=== PATIENT | female | born 1995 | race Hispanic/Latino ===

== ENCOUNTER 2023-01-21 02:09 | Emergency (ER) | payer OTHER ==
[2023-01-21] MEDS ORDERED: ONDANSETRON 4 MG/2 ML VIAL ONE ×2 (02:39→06:03)
[2023-01-21] MEDS ORDERED: MORPHINE 4 MG/ML SYR ONE (02:39)
[2023-01-21] MEDS ORDERED: KETOROLAC 30 MG/ML INJ ONE (03:45)
[2023-01-21] MEDS ORDERED: MORPHINE 2 MG/ML SYR ONE ×2 (03:45→06:03)
[2023-01-21 03:49] LABS: Protime INR 1.13
[2023-01-21 03:50] LABS: Absolute Lymphocytes (CBC) 2.7 K/uL (0.7-4.9); Hematocrit 33.8 % (36.0-45.0); Lymphocytes % 15.9 % (15.3-44.8); MCV 73.4 fL (80-100); MPV 9.2 fL (7.6-11.3)
[2023-01-21 04:03] LABS: ALT/SGPT 21 U/L (13-56); AST/SGOT 11 U/L (15-37); Albumin 3.6 g/dL (3.4-5.0); Alkaline Phosphatase 95 U/L (45-117); BUN Blood Urea Nitrogen 14 mg/dL (7-18); Bicarbonate 25 mEq/L (21-32); Bilirubin Total 0.2 mg/dL (0.2-1.0); Glomerular Filtration Rate 141 ml/min (=/>90); Glucose Level 112 mg/dL (74-106); Potassium 3.5 mEq/L (3.5-5.1); Protein, Total 7.5 g/dL (6.4-8.2); Sodium Level 137 mEq/L (136-145)
[2023-01-21 04:07] LABS: Bilirubin Direct < 0.1 mg/dL (0-0.2); Troponin High Sensitivity < 3.0 pg/mL (<58.9)
--- NOTE | 2023-01-21 04:54 | ER ---
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 I think it may be broken. Coronavirus screen: Vaccine status: Patient reports receiving the 2nd dose of the covid vaccine. Ebola Screen: No symptoms or risks identified at this time. Initial Sepsis Screen: Does the patient meet any 2 criteria? No. Patient's initial sepsis screen is negative. Does the patient have a suspected source of infection? No. Patient's initial sepsis screen is negative. Risk Assessment: Do you want to hurt yourself or someone else? Patient reports no desire to harm self or others. Onset of symptoms was January 21, 2023. 02:16 Method Of Arrival: Carried kd3 02:16 Acuity: RUBINA 3 kd3 Triage Assessment: 02:18 General: Appears uncomfortable, Behavior is calm, cooperative. Pain: Complains of pain kd3 in left quadriceps and left knee. Musculoskeletal: Circulation, motion, and sensation intact. Injury Description: Bruise sustained to left leg. 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 - Social history:: Smoking status: Patient denies any tobacco usage or history of. - Family history:: not pertinent. Screenin:52 [facility] ED Fall Risk Assessment (Adult) History of falling in the last 3 months, vc1 including since admission Yes- physiologic fall (2 pts) Confusion or Disorientation No (0 pts) Intoxicated or Sedated No (0 pts) Impaired Gait Yes (1 pt) Mobility Assist Device Used No (0 pt) Altered Elimination No (0 pt) Score/Fall Risk Level 3 or more points = High Risk Oriented to surroundings, Maintained a safe environment, Educated pt \T\ family on fall prevention, incl call for assistance when getting out of bed. Abuse screen: Denies threats or abuse. Nutritional screening: No deficits noted. Tuberculosis screening: No symptoms or risk factors identified. Assessment: 03:40 General: Appears uncomfortable, slender, Behavior is calm, cooperative. Pain: Complains aa9 of pain in left quadriceps Noted to be grimacing, moaning. Neuro: Level of Consciousness is awake, alert, obeys commands, Oriented to person, place, time, situation. Respiratory: Airway is patent Respiratory effort is even, unlabored. 03:40 Derm: Skin is intact, is healthy with good turgor. aa9 05:02 Reassessment: Patient and/or family updated on plan of care and expected duration. Pain vc1 level reassessed. Patient is alert, oriented x 3, equal unlabored respirations, skin warm/dry/pink. 05:47 Reassessment: No changes from previously documented assessment. Patient and/or family vc1 updated on plan of care and expected duration. Pain level reassessed. Vital Signs: 02:16 BP 119 / 84; Pulse 91; Resp 19; Temp 98.5(O); Pulse Ox 100% on R/A; kd3 02:16 Weight 68.04 kg; kd3 03:30 BP 141 / 95; Pulse 87; Pulse Ox 100% ; vc1 04:00 BP 131 / 83; Pulse 87; Resp 19; Pulse Ox 100% ; vc1 05:02 BP 123 / 67; Pulse 93; Resp 18; Pulse Ox 100% on R/A; vc1 05:30 BP 118 / 80; Pulse 91; Resp 19; Pulse Ox 100% ; vc1 ED Course: 02:14 Patient arrived in ED. ja2 02:18 Triage completed. kd3 02:18 Arm band placed on right wrist. kd3 02:31 Erik Oneil MD is Attending Physician. sp4 03:10 Pelvis XRAY In Process Unspecified. EDMS 03:10 Femur Left XRAY In Process Unspecified. EDMS 03:25 XRAY Chest (1 view) In Process Unspecified. EDMS 03:36 Basic Metabolic Panel Sent. vc1 03:36 CBC with Diff Sent. vc1 03:36 LFT's Sent. vc1 03:36 PT-INR Sent. vc1 03:36 Troponin HS Sent. vc1 03:36 COVID-19 SARS RT PCR Sent. vc1 03:52 Patsy Caro, OJ is Primary Nurse. vc1 03:52 Patient has correct armband on for positive identification. Bed in low position. Call vc1 light in reach. Client placed on continuous cardiac and pulse oximetry monitoring. NIBP monitoring applied. 04:00 traction applied to left leg. vc1 06:13 No provider procedures requiring assistance completed. Patient transferred, IV remains vc1 in place. Administered Medications: 02:36 Drug: morphine IVP or IV 4 mg Route: IVP; Infused Over: 4 mins; Site: right forearm; kl 02:36 Drug: Ondansetron IVP 4 mg Route: IVP; Site: right forearm; kl 03:47 Drug: Ketorolac IVP 30 mg Route: IVP; Site: right forearm; aa9 03:51 Drug: morphine IVP or IV 2 mg Route: IVP; Infused Over: 4 mins; Site: right forearm; aa9 06:01 Drug: morphine IVP or IV 2 mg Route: IVP; Infused Over: 4 mins; Site: right forearm; vc1 06:01 Drug: Ondansetron IVP 4 mg Route: IVP; Site: right forearm; vc1 Medication: 03:52 VIS not applicable for this client. vc1 Outcome: 04:54 ER care complete, transfer ordered by . sp4 06:13 Transferred by ground EMS to [facility], Transfer form completed. X-rays sent vc1 w/ patient. 06:13 Condition: good 06:13 Instructed on the need for transfer. 06:22 Patient left the ED. vc1 Signatures: Dispatcher [employer] EDLinda Landeros RN RN kl Alexander, Jessica ja2 Doucette, Kyli, RN RN kd3 Patsy Caro RN RN vc1 Avalos, Aylin, RN RN aa9 Potepalov, Sergey, MD MD sp4
--- NOTE | 2023-01-21 04:55 | EDPHYS ---
Physician Documentation [facility] Name: Niesha Subramanian Age: 27 yrs Sex: Female : 1995 Arrival Date: 01/21/2023 Time: 02:09 Bed 2 Private MD: ED Physician Erik Oneil HPI: 01/21 02:32 This 27 yrs old Female presents to ER via Carried with complaints of Leg sp4 Injury. 03:08 27-year-old male history of spina bifida, nonambulatory female presents after acute sp4 fall at home with left thigh pain. . 04:37 Patient states that she accidentally fell at home causing moderate to severe pain to sp4 the left thigh. Patient states that her bones in the thigh are grating. 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 - Social history:: Smoking status: Patient denies any tobacco usage or history of. - Family history:: not pertinent. ROS: 04:37 Constitutional: Negative for fever, chills, and weight loss, Eyes: Negative for injury, sp4 pain, redness, and discharge, ENT: Negative for injury, pain, and discharge, Neck: Negative for injury, pain, and swelling, Cardiovascular: Negative for chest pain, palpitations, and edema, Respiratory: Negative for shortness of breath, cough, wheezing, and pleuritic chest pain, Abdomen/GI: Negative for abdominal pain, nausea, vomiting, diarrhea, and constipation, Back: Negative for injury and pain, : Negative for injury, bleeding, discharge, and swelling, MS/Extremity: Positive for acute injury, positive for fall onto the left knee, positive for left thigh pain and deformity Skin: Negative for injury, rash, and discoloration, Neuro: Negative for headache, weakness, numbness, tingling, and seizure, Psych: Negative for depression, anxiety, Allergy/Immunology: Negative for hives, rash, and allergies Endocrine: Negative for neck swelling, polydipsia, polyuria, polyphagia, and weight changes Hematologic/Lymphatic: Negative for swollen nodes, abnormal bleeding, and unusual bruising Exam: 04:37 Constitutional: This is a well developed, well nourished patient who is awake, alert, sp4 uncomfortable appearing female, signs of chronic immobility, bilateral lower extremity atrophy from chronic immobility, nonambulatory Head/Face: Normocephalic, atraumatic. Eyes: Pupils equal round and reactive to light, extra-ocular motions intact. Lids and lashes normal. Conjunctiva and sclera are not injected. Cornea within normal limits. Periorbital areas with no swelling, redness, or edema. ENT: Nares patent. No nasal discharge, no septal abnormalities noted. Tympanic membranes are normal and external auditory canals are clear. Oropharynx with no redness, swelling, or masses, exudates, or evidence of obstruction, uvula midline. Mucous membranes moist. Neck: Trachea midline, no thyromegaly or masses palpated, and no cervical lymphadenopathy. Supple, full range of motion without nuchal rigidity, or vertebral point tenderness. No Meningismus. Chest/axilla: Normal chest wall appearance and motion. Nontender with no deformity. No lesions are appreciated. Cardiovascular: Regular rate and rhythm with a normal S1 and S2. No gallops, murmurs, or rubs. Normal PMI, no JVD. No pulse deficits. Respiratory: Lungs have equal breath sounds bilaterally, clear to auscultation and percussion. No rales, rhonchi or wheezes noted. No increased work of breathing, no retractions or nasal flaring. Abdomen/GI: Soft, non-tender, with normal bowel sounds. No distension or tympany. No guarding or rebound. No evidence of tenderness throughout. Back: No spinal tenderness. Chronic deformity associated with spina bifida with prior postoperative scar associated with meningomyelocele repair Skin: Warm, dry with normal turgor. Normal color with no rashes, no lesions, and no evidence of cellulitis. MS/ Extremity: Pulses equal, no cyanosis. Neurovascular intact. Chronic atrophy associated with immobility, there is left thigh deformity with obvious left humeral fracture to palpation. Moderate to severe left thigh tenderness. Bilateral lower extremity paralysis chronic Neuro: Awake and alert, GCS 15, oriented to person, place, time, and situation. Cranial nerves II-XII grossly intact. Bilateral lower extremity chronic paresis Psych: Awake, alert, with orientation to person, place and time. Behavior, mood, and affect are within normal limits 04:37 ECG was reviewed by the Attending Physician. EKG time 0 345, the rate is normal sinus sp4 rhythm at the rate of 75, overall normal EKG Vital Signs: 02:16 BP 119 / 84; Pulse 91; Resp 19; Temp 98.5(O); Pulse Ox 100% on R/A; kd3 02:16 Weight 68.04 kg; kd3 03:30 BP 141 / 95; Pulse 87; Pulse Ox 100% ; vc1 04:00 BP 131 / 83; Pulse 87; Resp 19; Pulse Ox 100% ; vc1 05:02 BP 123 / 67; Pulse 93; Resp 18; Pulse Ox 100% on R/A; vc1 05:30 BP 118 / 80; Pulse 91; Resp 19; Pulse Ox 100% ; vc1 MDM: 03:07 Patient medically screened. sp4 04:46 Differential diagnosis: dislocation, closed fracture, contusion, abrasion, tendonitis. sp4 Data reviewed: vital signs, nurses notes, EMS record, old medical records, lab test result(s), EKG, radiologic studies, plain films. Consideration of Admission/Observation Patient was admitted/placed on observation. Escalation of care including admission/observation considered. Management of patient was discussed with the following: Motorcycle Police Officer: [facility]. ED course: Dr. Guadarrama accepted patient without conference, . ED course: Pelvis x-ray -partially visualized mid diaphyseal femoral fracture with angulation. There is presumed POLICY OFFICER shunt catheter tubing coiled in the pelvis. Left femur x-ray revealed mid femoral diaphyseal spiral fracture with approximately half shaft width medial posterior displacement of the major distal fracture fragment no dislocation, fracture is angulated. There is surrounding soft tissue swelling. 04:54 ED course: Left femur traction was applied to prevent vascular compromise. sp4 01/21 03:09 Order name: Basic Metabolic Panel; Complete Time: 04:14 sp4 01/21 03:09 Order name: CBC with Diff; Complete Time: 04:14 sp4 01/21 03:09 Order name: LFT's; Complete Time: 04:14 sp4 01/21 03:09 Order name: PT-INR; Complete Time: 04:14 sp4 01/21 03:09 Order name: Troponin HS; Complete Time: 04:14 sp4 01/21 03:09 Order name: COVID-19 SARS RT PCR; Complete Time: 04:37 sp4 01/21 02:31 Order name: Pelvis XRAY sp4 01/21 02:32 Order name: Femur Left XRAY sp4 01/21 03:09 Order name: XRAY Chest (1 view) sp4 01/21 03:09 Order name: EKG; Complete Time: 03:10 sp4 01/21 03:09 Order name: Cardiac monitoring; Complete Time: 03:51 sp4 01/21 03:09 Order name: EKG - Nurse/Tech; Complete Time: 03:51 sp4 01/21 03:09 Order name: IV Saline Lock; Complete Time: 03:37 sp4 01/21 03:09 Order name: Labs collected and sent; Complete Time: 03:37 sp4 01/21 03:09 Order name: O2 Per Protocol; Complete Time: 03:37 sp4 01/21 03:09 Order name: O2 Sat Monitoring; Complete Time: 03:37 sp4 EC:37 Rate is 75 beats/min. Rhythm is regular, Normal Sinus Rhythm. QRS [place] is Normal. NM sp4 interval is normal. QRS interval is normal. QT interval is normal. T waves are Normal. No ST changes noted. Clinical impression: Normal ECG. Interpreted by me. Administered Medications: 02:36 Drug: morphine IVP or IV 4 mg Route: IVP; Infused Over: 4 mins; Site: right forearm; kl 02:36 Drug: Ondansetron IVP 4 mg Route: IVP; Site: right forearm; kl 03:47 Drug: Ketorolac IVP 30 mg Route: IVP; Site: right forearm; aa9 03:51 Drug: morphine IVP or IV 2 mg Route: IVP; Infused Over: 4 mins; Site: right forearm; aa9 06:01 Drug: morphine IVP or IV 2 mg Route: IVP; Infused Over: 4 mins; Site: right forearm; vc1 06:01 Drug: Ondansetron IVP 4 mg Route: IVP; Site: right forearm; vc1 Disposition Summary: 01/21/23 04:54 Transfer Ordered Transfer Location: [facility] sp4 Reason: Higher level of care sp4 Condition: Stable sp4 Problem: new sp4 Symptoms: have improved sp4 Accepting Physician: [facility] trauma team(01/21/23 06:22) vc1 Diagnosis - Displaced spiral fracture of shaft of left femur sp4 - Meningomyelocele, chronic immobility secondary to bilateral lower extremity chronic sp4 paralysis Forms: - Medication Reconciliation Form sp4 - SBAR form sp4 Signatures: Dispatcher [employer] EDMS Linda Eason RN RN Africa Cordova RN RN kd3 Patsy Caro RN RN vc1 Eufemia Rasmussen RN RN aa9 Erik Oneil MD MD sp4 Corrections: (The following items were deleted from the chart) 03:08 02:32 Knee Left 3 View+RAD.[email or web address].[email or web address] ordered. EDMS EDMS 06:22 04:54 [facility] trauma team sp4 vc1
[2023-01-21 06:27] VITALS: TEMP 98.5; O2SAT 100
[2023-01-21 06:34] VITALS: BP 118/80
--- NOTE | 2023-01-21 11:09 | RAD REPORT ---
EXAM DESCRIPTION: XR Pelvis, 1 View CLINICAL HISTORY: Fall and pain TECHNIQUE: Frontal view of the pelvis. COMPARISON: No relevant prior studies available. FINDINGS: Bones/joints: Partially visualized mid femoral diaphyseal fracture. No dislocation. Soft tissues: Unremarkable. Tubes, lines and devices: Presumed DESK REPRESENTATIVE shunt catheter tubing coiled in the pelvis. * A single impression for all exams can be found at the end of this report EXAM DESCRIPTION: XR Left Femur, 2 Views CLINICAL HISTORY: Fall and pain TECHNIQUE: Frontal and lateral views of the left femur. COMPARISON: No relevant prior studies available. FINDINGS: Bones/joints: Mid to distal femoral diaphyseal spiral fracture with approximately half s haft width medial posterior displacement of the major distal fracture fragment, mild fracture fragmen t overlap and apex anterior angulation at the fracture site. No dislocation. Soft tissues: Surrounding soft tissue swelling. * A single impression for all exams can be found at the end of this report IMPRESSION: XR Pelvis, 1 View: Partially visualized mid femoral diaphyseal fracture. XR Left Femur, 2 Views: Mid to distal left femoral diaphyseal fracture. Electronically signed by: Martir Laureano MD 01/21/2023 3:22 AM CDT Due to temporary technical issues with the PACS/Fluency reporting system, reports are being signed by the in house radiologist without review as a courtesy to ensure prompt reporting. The interpreting r adiologist is fully responsible for the content of the report.
--- NOTE | 2023-01-21 11:11 | RAD REPORT ---
EXAM DESCRIPTION: XR Pelvis, 1 View CLINICAL HISTORY: Fall and pain TECHNIQUE: Frontal view of the pelvis. COMPARISON: No relevant prior studies available. FINDINGS: Bones/joints: Partially visualized mid femoral diaphyseal fracture. No dislocation. Soft tissues: Unremarkable. Tubes, lines and devices: Presumed NAVIGATION OFFICER shunt catheter tubing coiled in the pelvis. * A single impression for all exams can be found at the end of this report EXAM DESCRIPTION: XR Left Femur, 2 Views CLINICAL HISTORY: Fall and pain TECHNIQUE: Frontal and lateral views of the left femur. COMPARISON: No relevant prior studies available. FINDINGS: Bones/joints: Mid to distal femoral diaphyseal spiral fracture with approximately half s haft width medial posterior displacement of the major distal fracture fragment, mild fracture fragmen t overlap and apex anterior angulation at the fracture site. No dislocation. Soft tissues: Surrounding soft tissue swelling. * A single impression for all exams can be found at the end of this report IMPRESSION: XR Pelvis, 1 View: Partially visualized mid femoral diaphyseal fracture. XR Left Femur, 2 Views: Mid to distal left femoral diaphyseal fracture. Electronically signed by: Martir Laureano MD 01/21/2023 3:22 AM CDT Due to temporary technical issues with the PACS/Fluency reporting system, reports are being signed by the in house radiologist without review as a courtesy to ensure prompt reporting. The interpreting r adiologist is fully responsible for the content of the report.
--- NOTE | 2023-01-21 11:13 | RAD REPORT ---
EXAM DESCRIPTION: XR Chest, 1 View CLINICAL HISTORY: CHEST PAIN TECHNIQUE: Frontal view of the chest. COMPARISON: No relevant prior studies available. FINDINGS: Lungs: Unremarkable. No consolidation. Pleural space: Unremarkable. No pneumothorax. Heart: Unremarkable. No cardiomegaly. Mediastinum: Unremarkable. Bones/joints: Severe thoracolumbar scoliosis. Tubes, lines and devices: Right-sided EARLY CHILDHOOD WORKER shunt catheter tubing. IMPRESSION: No acute disease. Electronically signed by: Martir Laureano MD 01/21/2023 3:34 AM CDT Due to temporary technical issues with the PACS/Fluency reporting system, reports are being signed by the in house radiologist without review as a courtesy to ensure prompt reporting. The interpreting r adiologist is fully responsible for the content of the report.
--- NOTE | 2023-01-22 07:55 | EKG ---
Test Date: 2023-01-21 Test Time: 03:44:35 [employer]kes: CHANDRIKA MEASUREMENT RESULTS: Intervals: Rate: 79 AL: 136 QRSD: 76 QT: 364 QTc: 417 [place]: P: 64 AL: 136 QRS: 63 T: 37 INTERPRETIVE STATEMENTS: Normal sinus rhythm Normal ECG No previous ECG available for comparison Electronically Signed On 01-22-23 07:53:03 CDT by Travon Quiñonez
--- NOTE | 2023-01-22 07:55 | EKG ---
Test Date: 2023-01-21 Test Time: 03:45:06 Telecommunications Manager: CHANDRIKA MEASUREMENT RESULTS: Intervals: Rate: 75 MS: 140 QRSD: 74 QT: 374 QTc: 417 [place]: P: 56 MS: 140 QRS: 61 T: 35 INTERPRETIVE STATEMENTS: Normal sinus rhythm Normal ECG Compared to ECG 01/21/2023 03:44:35 No significant changes Electronically Signed On 01-22-23 07:53:02 CDT by Travon Quiñonez
== END 2023-01-21 06:22 | disposition short-term general hospital (02) ==
LOC: ER 02:09
DX: S72.342A Displaced spiral fracture of shaft of left femur, initial encounter for closed fracture (principal); Q05.9 Spina bifida, unspecified; M62.3 Immobility syndrome (paraplegic); Z91.040 Latex allergy status; Z91.048 Other nonmedicinal substance allergy status; Z20.822 Contact with and (suspected) exposure to COVID-19
CPT/HCPCS: 93005 ×2; 85025; 80048; 36415; 85610; 80076; 84484; 71045; 72170; 73552; 96375; 96374; 99285; U0003; J2270 ×2; J2405 ×2

== ENCOUNTER 2023-01-29 10:58 | Emergency (ER) | payer OTHER ==
--- OUTSIDE RECORDS SUMMARY | 2023-01-29 11:03 | XMS REPORT | Continuity of Care Document ---
:1995 Author Organization Formerly [facility] t Address [address] [facility] [address] [place] [address] Care Team Providers Name Role Phone ANATOLY SHORT Attending Clinician Unavailable Anatoly Short Attending Clinician Doctor Unassigned, [place] Attending Clinician Unavailable BRETT BURNS Attending Clinician Unavailable Heather Walton PT Attending Clinician Unavailable Brett Burns MD Attending Clinician ANATOLY SHORT Admitting Clinician Unavailable Anatoly Short Admitting Clinician Payers Payer Name Policy Type Policy Number Effective Date Expiration Date S milady WELLCARE/WELLCARE [id number] 2022 [employer] 00:00:00 Problems Condition Condition Condition Status Onset Resolution Last Treating Co mments Source Name Details Category Date Date Treatment Clinician Date FRACTURE-L FRACTURE- Diagnosis Active 2023-01-21 Memoria EG/FEMUR(F LEG/FEMUR( 01-20 10:08:00 l X) FX) Active 05:51: Emerson n 3 [facility] ACUTE PAIN ACUTE Diagnosis Active 2023-01-24 Memoria DUE TO PAIN DUE 01-20 09:20:00 l INJURY TO INJURY 05:51: Abhijit Active 00 01/20/2023 [facility] Spina Spina Problem Active 2023-01-26 Memor ia bifida bifida 03:48:33 l (disorder) (disorder) He rmann Active Problem 01/26/2023 [facility] ACUTE PAIN ACUTE Diagnosis Active 2023-01-24 Memoria DUE TO PAIN DUE 09:20:00 l TRAUMA TO TRAUMA [place] Active [facility] Hydrocepha Hydroceph Problem Active 2023-01-26 Memoria melissa alus 03:48:33 l (disorder) (disorder) He ann Active Problem 01/26/2023 [facility] Microcytic Microcyti Problem Active 2023-01-26 Memoria anemia c anemia 03:48:33 l (disorder) (disorder) He ann Active Problem 01/26/2023 [facility] Allergies, Adverse Reactions, Alerts Allergy Allergy Status Severity Reaction(s) Onset Inactive Treating Comm ents Source Name Type Date Date Clinician NO KNOWN Drug Active Univers ALLERGIE Class it[facility] No Known No Known Active Memori a Medicati Medicati l on on [place] Allergie Allergie [facility] Latex [facility]x [facility] [place] Social History Social Habit Start Date Stop Date Quantity Comments Source Sex Assigned At [birth year] [facility] 00:00:00 00:00:00 Medical Branch Smoking Status Start Date Stop Date Source Tobacco smoking consumption [facility] Branch Tobacco smoking status [facility] Medications Ordered Filled Start Stop Current Ordering Indication Dosage Frequency Signature Comments Components Source Medication Medication Date Date Medication? Clinician (SIG) Name Name Physical Yes See Memoria Therapy 5-10 Instructio l 19:37: ns, [facility] [place] 00 ONCALL, Evaluate and Treat ___ times per week for ____ weeks, # 1 ea, 0 Refill(s) lidocaine Yes 2 patch, Heber khalida 4% topical 5-10 TOP, l film 18:26: Daily, Abhijit 00 Remove after 12 hours, X 5 day, # 10 patch, 0 Refill(s), Pharmacy: [facility] #[id number], 167.6, cm, 01/21/23 23:56:00 CDT, Height, 68.18, kg, 01/21/23 23:56:00 CDT, Weight enoxaparin Yes 30 mg = Heber khalida 30 mg/0.3 5-10 0.3 mL, l mL 18:25: SUB-Q, Abhijit subcutaneou 00 Q12H, X 21 s solution day, # 12.6 mL, 0 Refill(s), Pharmacy: [facility] #[id number], 167.6, cm, 01/21/23 23:56:00 CDT, Height, 68.18, kg, 01/21/23 23:56:00 CDT, Weight oxyCODONE 5 Yes 5 mg = 1 Me moria mg oral 5-10 tab, PO, l tablet, 18:25: Q6H, PRN Emerson n immediate 00 Pain Score release 7-10, X 7 day, # 28 tab, 0 Refill(s), Pharmacy: [facility] #[id number], 167.6, cm, 01/21/23 23:56:00 CDT, Height, 68.18, kg, 01/21/23 23:56:00 CDT, Weight acetaminoph Yes 975 mg = 3 Memoria en 325 mg 5-10 tab, PO, l oral 18:24: Q8H-06, 0 Abhijit tablet. 00 Refill(s) Vital Signs Vital Name Observation Time Observation Value Comments Source Heart Rate 2023-01-23 17:04:08 [facility] Systolic (mm Hg) 2023-01-23 17:03:55 Heber rial [place] Diastolic (mm Hg) 2023-01-23 17:03:55 Mem orial Abhijit Temperature Oral (F) 2023-01-23 17:03:38 98.1 F [facility] BMI Calculated 2023-01-22 03:00:00 Memori al Abhijit Height 2023-01-22 03:00:00 167.6 cm [facility] Abhijit Weight 2023-01-22 03:00:00 [facility] [place] Height 2023-01-21 12:27:00 5 [ft_i] [facility] Weight 2023-01-21 12:27:00 [facility] Procedures Procedure Date / Time Performed Performing Clinician [facility] e PHYSICIAN ORDERS 2022-07-26 06:01:00 Doctor Unassfahad[facility] Start End Encounter Admission Attending Care Care Encounter Source Date/Time Date/Time Type Type Clinicians Facility Department ID 2023-01-23 Outpatient [facility] [id number] [place] 09:02:34 [id number] [facility] 2023-01-21 2023-01-23 Inpatient [facility] [id number] Memoria 12:21:00 21:44:[address] 2023-01-21 2023-01-23 Inpatient U PRUDENCE, [facility] [id number] [facility] 10:38:00 16:44:00 [facility] 2023-01-21 2023-01-23 Outpatient Prudence [facility] [id number] 07:21:00 16:44:00 [place] [id number] 2022-07-26 2022-07-26 Orders Doctor RAMACHANDRAN [id number] Univers 00:00:00 00:00:00 Only Unassigned, USHA [id number] ity of [facility] [id number] Oliver as [phone] [address] 2022-07-18 2022-07-18 Outpatient R AMANDA [facility] [id number] Univers 14:30:00 15:16:00 BRETT ity [facility] 2022-07-18 2022-07-18 Ancillary Heather Walton [facility] 1.2.84 0.114 [id number] Univers 14:30:00 15:16:00 Visit Brett Burns [id number] ity [facility] [id number] [phone] Hi dical NAL [address] Branch BUILDING Results Test Description Test Time Test Comments Results Result Comments Source CHEMISTRY 2023-01-23 09:37:00 Test Item Value Reference Range Interpretation Comme nts Glucose Lvl (test code = Glucose Lvl) 153 70-99 [facility]cjwuxlSNRBHPQEV0829-83-29 09:37:00 Test Item Value Reference Range Interpretation Comments BUN (test code = BUN) 7 7-22 [facility]vetRARGQICQV6960-98-25 09:37:00 Test Item Value Reference Range Interpretation Comments Creatinine Lvl (test code = Creatinine 0.45 0.50-1.40 Lvl) [facility]vineLclptjvQSARIFWHS6446-40-98 09:37:00 Test Item Value Reference Range Interpretation Comments Sodium Lvl (test code = Sodium Lvl) 134 135-145 [facility]vineXxponelRYYUBFFXD5821-19-50 09:37:00 Test Item Value Reference Range Interpretation Comments Potassium Lvl (test code = Potassium 3.7 3.5-5.1 Lvl) [facility]vineEmerxgkLKVTZOQOG2478-70-98 09:37:00 Test Item Value Reference Range Interpretation Comments Chloride Lvl (test code = Chloride Lvl) 105 95-109 [facility]vineWzayirrUAHGANOOB1884-42-53 09:37:00 Test Item Value Reference Range Interpretation Comments CO2 (test code = CO2) 22 24-32 [facility]vineZmbcnveSXKGTLHGY8607-08-37 09:37:00 Test Item Value Reference Range Interpretation Comments AGAP (test code = AGAP) 10.7 10.0-20.0 [facility]vineUrzthpxADBHPOXBW4529-25-60 09:37:00 Test Item Value Reference Range Interpretation Comments Calcium Lvl (test code = Calcium Lvl) 8.5 8.5-10.5 [facility]vineXqbmtgdWTEFXIFBM9838-26-69 09:37:00 Test Item Value Reference Range Interpretation Comments eGFR (test code = eGFR) 134 [facility]OjhlrmwPFKVAGNELG7253-69-08 09:37:00 Test Item Value Reference Range Interpretation Comments Plt Morph (test code = Normal (01/23/23 4:37 Plt Morph) AM) [facility] CenterKvwsmkpYANIGBMLUF9681-40-59 09:37:00 Test Item Value Reference Range Interpretation Comments Segs (test code = Segs) 92.7 45.0-75.0 [facility] CenterFguxuhuZLMXRWMSDB1379-85-10 09:37:00 Test Item Value Reference Range Interpretation Comments Lymphocytes (test code = Lymphocytes) 4.3 20.0-40.0 [facility] CenterUrdsizeEPDFRHUEVZ9545-35-75 09:37:00 Test Item Value Reference Range Interpretation Comments Monocytes (test code = Monocytes) 2.6 2.0-12.0 [facility] CenterRblwgulJGMLBGJDKF4230-00-75 09:37:00 Test Item Value Reference Range Interpretation Comments Basophils (test code = 0.4 See_Comment [Aut omated message] The Basophils) system which ge nerated this result tra nsmitted reference range : <=1.0. The reference r georgie was not used to int erpret this result as normal/abnormal . [facility] CenterDmeghfzEFSTFJHZEK6011-00-96 09:37:00 Test Item Value Reference Range Interpretation Comments Neutrophils # (test code = Neutrophils 11.7 1.5-8.1 #) [facility] CenterQoyhamdPBIWADHXQQ3357-83-37 09:37:00 Test Item Value Reference Range Interpretation Comments Lymphocytes # (test code = Lymphocytes 0.5 1.0-5.5 #) [facility] CenterJlbrbmvEDBNTRHTIC6405-96-49 09:37:00 Test Item Value Reference Range Interpretation Comments Monocytes # (test code 0.3 See_Comment [Aut omated message] The = Monocytes #) system which generated this result tra nsmitted reference range : <=0.8. The reference r georgie was not used to int erpret this result as normal/abnormal . [facility] CenterSwqkzlwBKJBJOAFWL2349-29-86 09:37:00 Test Item Value Reference Range Interpretation Comments Microcyte (test code = 2+ *ABN*(01/23/23 Microcyte) 4:37 AM) [place] [address]-05-10 09:37:00 Test Item Value Reference Range Interpretation Comments WBC (test code = WBC) 12.6 3.7-10.4 [place] [address]-05-10 09:37:00 Test Item Value Reference Range Interpretation Comments RBC (test code = RBC) 3.70 4.20-5.40 [place] [address]-05-10 09:37:00 Test Item Value Reference Range Interpretation Comments Hgb (test code = Hgb) 8.7 12.0-16.0 [place] [address]-05-10 09:37:00 Test Item Value Reference Range Interpretation Comments Hct (test code = Hct) 26.7 36.0-48.0 [place] [address]-05-10 09:37:00 Test Item Value Reference Range Interpretation Comments MCV (test code = MCV) 72.2 80.0-98.0 [facility] CenterNoirgtcPGTHIOFYZB0511-64-85 09:37:00 Test Item Value Reference Range Interpretation Comments MCH (test code = MCH) 23.7 pg 27.0-31.0 [facility] CenterHfzaojvWFUBEFDCRB0516-66-74 09:37:00 Test Item Value Reference Range Interpretation Comments MCHC (test code = MCHC) 32.8 32.0-36.0 [facility] CenterVzxmdxhPYAUPQIPFF8647-37-91 09:37:00 Test Item Value Reference Range Interpretation Comments RDW (test code = RDW) 15.8 11.5-14.5 [facility] CenterGcxxljaXIWAFMVPAV3453-33-64 09:37:00 Test Item Value Reference Range Interpretation Comments Platelet (test code = Platelet) 250 133-450 [facility] CenterTrwlvzsYJPUNWVOVY8414-25-36 09:37:00 Test Item Value Reference Range Interpretation Comments MPV (test code = MPV) 9.1 7.4-10.4 [facility]vineWcnfhqjGTFIXIOWV9555-17-15 10:33:00 Test Item Value Reference Range Interpretation Comments Total Protein (test code = Total 6.0 6.4-8.4 Protein) [facility]vineSxqvnapFHMBYGRKI1084-61-46 10:33:00 Test Item Value Reference Range Interpretation Comments Albumin Lvl (test code = Albumin Lvl) 2.7 3.5-5.0 [facility]vineZdwdmffMCZNFSBKQ4257-77-14 10:33:00 Test Item Value Reference Range Interpretation Comments Globulin (test code = Globulin) 3.3 2.7-4.2 [facility]vineJmqzkeoLCMPKOYDX4269-31-50 10:33:00 Test Item Value Reference Range Interpretation Comments A/G Ratio (test code = A/G Ratio) 0.8 1 0.7-1.6 [facility] GrapevineIbidsagNCUHXENGS2887-22-32 10:33:00 Test Item Value Reference Range Interpretation Comments ALT (test code = ALT) 17 See_Comment [Auto mated message] The system which ge nerated this result transmit jessica reference range : <=65. The reference range was not used to interpr et this result as vianey l/abnormal. [facility]vineDdxqrsaVPWEJYSIS2168-62-93 10:33:00 Test Item Value Reference Range Interpretation Comments AST (test code = AST) 16 See_Comment [Auto mated message] The system which ge nerated this result transmit jessica reference range : <=37. The reference range was not used to interpr et this result as vianey l/abnormal. [facility]rapevineZdxqojkZNWPJOFRF9431-79-78 10:33:00 Test Item Value Reference Range Interpretation Comments Alk Phos (test code = Alk Phos) 83 39-136 [place] [address]-05-09 10:33:00 Test Item Value Reference Range Interpretation Comments Bili Total (test code = Bili Total) 0.3 0.2-1.3 [place] [address]-05-09 10:33:00 Test Item Value Reference Range Interpretation Comments Bili Direct (test code no gt See_Comment [Aut omated message] The = Bili Direct) system which generated this result tra nsmitted reference range : <=0.3. The reference r georgie was not used to int erpret this result as vianey l/abnormal. [facility] GrapevineIkgeliaHYNNMIZYF4900-48-82 10:33:00 Test Item Value Reference Range Interpretation Comments Bili Indirect Unable to See_Comment [Automated (test code = Bili Calculate message] T he system Indirect) which generated this result transmitted reference range : <=1.0. The reference range was not used to interpret this result as normal/abnormal . [facility] CenterDkvbyowQEOAKJWBGY2674-22-21 10:33:00 Test Item Value Reference Range Interpretation Comments Eosinophils (test code = 1.1 See_Comment [A utomated message] The Eosinophils) system which ge nerated this result tra nsmitted reference range : <=4.0. The reference r georgie was not used to int erpret this result as normal/abnormal . [facility] CenterTtgriefPLJCPDUAJG0423-72-61 10:33:00 Test Item Value Reference Range Interpretation Comments Eosinophils # (test code 0.1 See_Comment [A utomated message] The = Eosinophils #) system whic h generated this result tra nsmitted reference range : <=0.5. The reference r georgie was not used to int erpret this result as normal/abnormal . [facility] CenterMyknrbtOVLBZLIGIK6138-59-86 10:33:00 Test Item Value Reference Range Interpretation Comments PT (test code = PT) 14.7 s 12.0-14.7 [facility] CenterFrnfkzeWNTJHTUHXH3871-02-83 10:33:00 Test Item Value Reference Range Interpretation Comments INR (test code = INR) 1.15 1 0.85-1.17 [facility] HospitalUivqkyuYRPRZPGFLM4607-50-56 10:33:00 Test Item Value Reference Range Interpretation Comments PTT (test code = PTT) 37.1 s 22.9-35.8 [facility] [id number] 21:18:00 Test Item Value Reference Range Interpretation Comments ABO/Rh (test code = ABO/Rh) O POS [facility] RNFTGAE8744-06-19 21:18:00 Test Item Value Reference Range Interpretation Comments Antibody Scrn (test Negative (01/21/23 4:18 code = Antibody Scrn) PM) [place] [address]-08 16:17:33 Test Item Value Reference Range Interpretation Comments RADRPT (test code EXAM: XR LEFT FEMUR 2 = RADRPT) VIEWSDATE: 01/21/2023INDICATION: - s/p splintCOMPARISON: Earlier the same dayTECHNIQUE: AP and lateral radiographs of the femurFINDINGS: Redemonstration of a spiral fracture of the distal left femur. There has been been interval splinting with improved alignment. There is no significant angulation. There is approximately one half shaft width medial and posterior displacement of the distal fracture fragment.No soft tissue abnormality is identified.IMPRESSION: Improved alignment of the known distal femoral fracture status post splinting. [place] [address]2023-05-08 13:54:32 Test Item Value Reference Range Interpretation Comments RADRPT (test code = EXAM: XR LEFT KNEE 3 RADRPT) VIEWS DATE: 01/21/2023 8:34INDICATION: - pain after fallCOMPARISON: Same day femur radiographTECHNIQUE: 3 views of the kneeFINDINGS: Acute, spiral, displaced fracture through the junction of middle and distal thirds left femoral diaphysis with associated soft tissue swelling.Alignment of the knee is normal. No other acute fracture.No knee joint effusion is present. IMPRESSION: Acute, spiral, displaced fracture through the junction of middle and distal thirds left femoral diaphysis with associated soft tissue swelling [place] [address]2023-05-08 13:46:12 Test Item Value Reference Range Interpretation Comments RADRPT (test EXAM: XR LEFT HIP 2 VIEW AND code = RADRPT) AP PELVISEXAM: XR LEFT FEMUR 2 VIEWSDATE: 01/21/2023 at 0846 hoursINDICATION: - pain after fallCOMPARISON: None.TECHNIQUE: AP pelvis, 2 view hip, 2 views of the femurFINDINGS:Pelvis: No acute fracture or malalignment is identified.Hip/Femur: Spiral displaced fracture is noted through the junction of middle and distal thirds left femoral diaphysis with about three quarter shaft's width medial displacement of the distal fragment and anterior apex angulation of the fracture. Associated soft tissue swelling.Soft tissues: Moderate diffuse soft tissue swelling of the left thigh.Partially visualized likely ventriculoperitoneal shunt overlying the pelvis.IMPRESSION: Acute, spiral, displaced fracture through the junction of middle and distal thirds left femoral diaphysis with associated soft tissue swelling [facility] HospitalAmxeesrWKYZTX4541-36-59 13:46:12 Test Item Value Reference Range Interpretation Comments RADRPT (test EXAM: XR LEFT HIP 2 VIEW AND code = RADRPT) AP PELVISEXAM: XR LEFT FEMUR 2 VIEWSDATE: 01/21/2023 at 0846 hoursINDICATION: - pain after fallCOMPARISON: None.TECHNIQUE: AP pelvis, 2 view hip, 2 views of the femurFINDINGS:Pelvis: No acute fracture or malalignment is identified.Hip/Femur: Spiral displaced fracture is noted through the junction of middle and distal thirds left femoral diaphysis with about three quarter shaft's width medial displacement of the distal fragment and anterior apex angulation of the fracture. Associated soft tissue swelling.Soft tissues: Moderate diffuse soft tissue swelling of the left thigh.Partially visualized likely ventriculoperitoneal shunt overlying the pelvis.IMPRESSION: Acute, spiral, displaced fracture through the junction of middle and distal thirds left femoral diaphysis with associated soft tissue swelling [facility] HospitalYrfmwwxVDBBCQHRU3429-66-17 13:46:00 Test Item Value Reference Range Interpretation Comments S Preg (test code = S Negative *NA*(01/21/23 Preg) 8:46 AM) [facility] [id number] 05:26:27 Test Item Value Reference Range Interpretation Comments GLUCOSE (test code = 83 MG/DL 70-99 2216) BUN (test code = 13 MG/DL 6-20 2207) CREATININE (test 0.41 MG/DL 0.60-1.30 L code = 2214) eGFR (2021 CKD-EPI) 137 >60 (test code = 37034) ML/MIN/1.73 CALC BUN/CREAT (test 32 RATIO 6-28 H code = 223) SODIUM (test code = 141 MEQ/L 503-570 7389) POTASSIUM (test code 4.0 MEQ/L 3.5-5.4 = 2227) CHLORIDE (test code 103 MEQ/L 95-107 = 2214) CARBON DIOXIDE (test 24 MEQ/L 19-31 code = 220) CALCIUM (test code = 10.0 MG/DL 8.5-10.5 2208) PROTEIN, TOTAL (test 7.4 G/DL 6.1-8.3 code = 2228) ALBUMIN (test code = 4.6 G/DL 3.5-5.2 2200) CALC GLOBULIN (test 2.8 G/DL 1.9-3.7 code = 2239) CALC A/G RATIO (test 1.6 RATIO 1.0-2.6 code = 2233) BILIRUBIN, TOTAL 0.2 MG/DL See_Comment [Automated message] (test code = 2206) The syste m which generated this result transmit jessica reference range : <=1.2. The refe rence range was not u sed to interpret th is result as normal/abnormal . ALKALINE PHOSPHATASE 85 U/L 40-112 (test code = 2203) AST (test code = 12 U/L 9-40 2217) ALT (test code = 11 U/L 5-40 2218) HEMOGLOBIN [id number] 03:28:48 Test Item Value Reference Range Interpretation Comments HEMOGLOBIN A1c (test 5.5 % 4.2-5.6 UNLESS OTHERWISE code = 45371) INDICATED, ALL TESTING PERFORMED ATCLI N[facility] PATHOLOG[facility] LABOR [employer] [address] [place] [id number] LABOR ATORY DIRECTOR: ALMA TRIPLETT M.D. CLIA NUMBER [id number] CAP ACCREDITATION N O. [id number] CBC W/AUTO DIFF WITH [id number] 02:16:51 Test Item Value Reference Range Interpretation Comments WBC (test code = 7.7 K/UL 3.5-11.0 1001) RBC (test code = 5.12 M/UL 3.80-5.40 1002) HEMOGLOBIN (test code 13.1 G/DL 11.5-15.5 = 1003) HEMATOCRIT (test code 40.8 % 34.0-45.0 = 1004) MCV (test code = 79.7 fL 80.0-99.0 L 1005) MCH (test code = 25.6 PG 25.0-33.0 1006) MCHC (test code = 32.1 G/DL 31.0-36.0 1007) RDW (test code = 13.9 % 11.5-15.0 1038) NEUTROPHILS (test 56.3 % code = 1008) LYMPHOCYTES (test 35.8 % code = 1010) MONOCYTES (test code 4.9 % = 1011) EOSINOPHILS (test 2.3 % code = 1012) BASOPHILS (test code 0.3 % = 1013) IMMATURE GRANULOCYTES 0.4 % (test code = 1036) NUCLEATED RBCS (test 0.0 /100 WBC'S See_Comment [Aut omated code = 1065) message] The sy stem which generated this result transmitted reference range : 0.0. The refere nce range was not u sed to interpret th is result as normal/abnormal . PLATELET COUNT (test 311 K/UL 130-400 code = 1015) ABSOLUTE NEUTROPHILS 4.36 K/UL 1.50-7.50 (test code = 1066) ABSOLUTE LYMPHOCYTES 2.77 K/UL 1.00-4.00 (test code = 1067) ABSOLUTE MONOCYTES 0.38 K/UL 0.20-1.00 (test code = 1068) ABSOLUTE EOSINOPHILS 0.18 K/UL 0.00-0.50 (test code = 1040) ABSOLUTE BASOPHILS 0.02 K/UL 0.00-0.20 (test code = 1069) ABS IMMATURE 0.03 K/UL 0.00-0.10 GRANULOCYTES (test code = 1020) ABS NUCLEATED RBCS 0.00 K/UL 0.00-0.11 (test code = 94826)
--- NOTE | 2023-01-29 12:28 | ER ---
Nurse's Notes [facility] Name: Niesha Subramanian Age: 27 yrs Sex: Female : 1995 Arrival Date: 01/29/2023 Time: 10:58 Bed 19 Private MD: Diagnosis: Attention to vesicostomy Presentation: 01/29 11:05 Chief complaint: Patient states: Ran out of supplies for colostomy. States they were nj1 given some last week while at hospital in [place] but they dont have any more of the cream that helps the bag stick. Coronavirus screen: Vaccine status: Patient reports receiving the 2nd dose of the covid vaccine. Ebola Screen: Patient denies travel to an Ebola-affected area in the 21 days before illness onset. 11:05 Method Of Arrival: Ambulatory [facility] 11:05 Initial Sepsis Screen: Does the patient meet any 2 criteria? HR > 90 bpm. No. Patient's [facility] initial sepsis screen is negative. Does the patient have a suspected source of infection? No. Patient's initial sepsis screen is negative. Risk Assessment: Do you want to hurt yourself or someone else? Patient reports no desire to harm self or others. Onset of symptoms was January 29, 2023. 11:05 Acuity: RUBINA 4 nj1 Triage Assessment: 11:05 General: Appears in no apparent distress. Behavior is calm, cooperative, appropriate bp for age. Pain: Denies pain. EENT: No deficits noted. Neuro: No deficits noted. Cardiovascular: No deficits noted. Respiratory: No deficits noted. GI: No signs and/or symptoms were reported involving the gastrointestinal system. : VESICOSTOMY. Derm: No deficits noted. Musculoskeletal: No deficits noted. Historical: - Allergies: 11:05 Latex, Natural Rubber; nj1 - PMHx: 11:05 Spina Bifida; nj1 - Immunization history:: Client reports receiving the 2nd dose of the Covid vaccine. - Social history:: Smoking status: Patient denies any tobacco usage or history of. Screenin:00 [facility] ED Fall Risk Assessment (Adult) History of falling in the last 3 months, bp including since admission No falls in past 3 months (0 pts). Abuse screen: Denies threats or abuse. Denies injuries from another. Nutritional screening: No deficits noted. Tuberculosis screening: No symptoms or risk factors identified. Assessment: 11:05 General: SEE TRIAGE NOTE. bp 13:00 Reassessment: DC HOME VIA WC. bp Vital Signs: 11:05 BP 115 / 75; Pulse 115; Resp 18; Temp 98.6(TE); Pulse Ox 100% ; Weight 68.04 kg; nj1 12:00 BP 120 / 99; Pulse 100; Resp 16; Pulse Ox 100% ; bp 13:00 BP 103 / 90; Pulse 96; Resp 16; Pulse Ox 100% ; bp ED Course: 10:59 Patient arrived in ED. am2 11:02 Umair Miller PA is PHCP. [facility] 11:02 Suleman Samuels MD is Attending Physician. [facility] 11:12 Triage completed. nj1 11:13 Ulices Hodge, RN is Primary Nurse. bp 11:13 Arm band placed on right wrist. nj1 12:26 Shimon Rondon MD is Referral Physician. [facility] 13:00 Patient has correct armband on for positive identification. Bed in low position. Call bp light in reach. Side rails up X2. 13:00 No provider procedures requiring assistance completed. Patient did not have IV access bp during this emergency room visit. Administered Medications: No medications were administered Medication: 13:00 VIS not applicable for this client. bp Outcome: 12:27 Discharge ordered by . [facility] 13:00 Discharged to home via wheelchair, with family. bp 13:00 Condition: stable 13:00 Discharge instructions given to patient, family, Instructed on discharge instructions, follow up and referral plans. Demonstrated understanding of instructions, follow-up care. 13:10 Patient left the ED. bp Signatures: Umair Miller PA PA [facility] Joyce Hood am2 Ulices Hodge, RN RN bp Fiordaliza Garzon RN RN nj1
--- NOTE | 2023-01-29 12:28 | EDPHYS ---
Physician Documentation [facility] Name: Niesha Subramanian Age: 27 yrs Sex: Female : 1995 Arrival Date: 01/29/2023 Time: 10:58 Bed 19 Private MD: ED Physician Suleman Samuels HPI: 01/29 11:04 This 27 yrs old Female presents to ER via Ambulatory with complaints of jmm trouble with colostomy bag. 11:04 Family requests colostomy bags and prep solution. [facility] Historical: - Allergies: 11:05 Latex, Natural Rubber; nj1 - PMHx: 11:05 Spina Bifida; nj1 - Immunization history:: Client reports receiving the 2nd dose of the Covid vaccine. - Social history:: Smoking status: Patient denies any tobacco usage or history of. ROS: 11:04 Constitutional: Negative for fever, chills, and weight loss, Cardiovascular: Negative jm for chest pain, palpitations, and edema, Respiratory: Negative for shortness of breath, cough, wheezing, and pleuritic chest pain. 11:04 All other systems are negative. Exam: 11:04 Constitutional: This is a well developed, well nourished patient who is awake, alert, jmm and in no acute distress. Head/Face: atraumatic. Eyes: EOMI, no conjunctival erythema appreciated ENT: Moist Mucus Membranes Neck: Trachea midline, Supple Chest/axilla: Normal chest wall appearance and motion. Cardiovascular: Regular rate and rhythm. No edema appreciated Respiratory: Normal respirations, no respiratory distress appreciated Abdomen/GI: Non distended Back: Normal ROM Skin: General appearance color normal Neuro: Awake and alert Psych: Behavior is normal, Mood is normal, Patient is cooperative and pleasant Vital Signs: 11:05 BP 115 / 75; Pulse 115; Resp 18; Temp 98.6(TE); Pulse Ox 100% ; Weight 68.04 kg; nj1 12:00 BP 120 / 99; Pulse 100; Resp 16; Pulse Ox 100% ; bp 13:00 BP 103 / 90; Pulse 96; Resp 16; Pulse Ox 100% ; bp MDM: 11:04 Patient medically screened. [facility] 11:04 Data reviewed: vital signs, nurses notes. Counseling: I had a detailed discussion with jmitm the patient and/or guardian regarding: the historical points, exam findings, and any diagnostic results supporting the discharge/admit diagnosis, the need for outpatient follow up, to return to the emergency department if symptoms worsen or persist or if there are any questions or concerns that arise at home. 01/29 11:10 Order [place]: [facility] Order: skin prep, colostomy bag; Complete Time: 12:36 jmm 01/29 11:19 Order name: [facility] Order: ostomy barrier wipes; Complete Time: 12:36 jmm Administered Medications: No medications were administered Disposition: 13:35 Co-signature as Attending Physician, Suleman Samuels MD I reviewed the patient's care rn provided by the Advanced Practice Provider and agree with the diagnosis and treatment plan. Disposition Summary: 01/29/23 12:27 Discharge Ordered Location: Home [facility] Condition: Stable jmm Diagnosis - Attention to vesicostomy jmm Followup: jmm - With: Shimon Rondon MD - When: 2 - 3 days - Reason: Recheck today's complaints, Continuance of care, Re-evaluation by your physician Discharge Instructions: - Discharge Summary Sheet jm - Colostomy Home Guide, Adult jm Forms: - Medication Reconciliation Form [facility] - Thank You Letter jmm - Antibiotic Education jmm - Prescription Opioid Use jm Signatures: Umair Miller PA PA jmm Nieto, Roman, MD MD rn Jaco, Norma, RN RN nj1
[2023-01-29 13:15] VITALS: TEMP 98.6; O2SAT 100
[2023-01-29 13:17] VITALS: BP 103/90
== END 2023-01-29 13:10 | disposition home or self-care (01) ==
LOC: ER 10:58
DX: Z43.3 Encounter for attention to colostomy (principal)
CPT/HCPCS: 99283

== ENCOUNTER 2023-08-29 14:57 | Emergency (ER) | payer OTHER ==
--- NOTE | 2023-08-29 15:59 | RAD REPORT ---
EXAM DESCRIPTION: RAD - Ribs Left - 08/29/2023 3:50 pm CLINICAL HISTORY: Rib pain FINDINGS: Two views left ribs obtained No fracture seen
[2023-08-29 16:54] LABS: Absolute Lymphocytes (CBC) 2.9 K/uL (0.7-4.9); Hematocrit 39.5 % (36.0-45.0); Lymphocytes % 32.2 % (15.3-44.8); MPV 9.1 fL (7.6-11.3); Platelets 288 thou/uL (152-406); RBC Red Blood Cell Count 5.33 M/uL (3.86-4.86)
[2023-08-29] MEDS ORDERED: KETOROLAC 30 MG/ML INJ ONE (17:01)
[2023-08-29 17:32] LABS: Albumin 3.9 g/dL (3.4-5.0); Potassium 3.1 mEq/L (3.5-5.1); Protein, Total 8.3 g/dL (6.4-8.2)
[2023-08-29 17:58] LABS: Bilirubin Total 0.3 mg/dL (0.2-1.0)
--- NOTE | 2023-08-29 20:57 | RAD REPORT ---
EXAM DESCRIPTION: CT - Abdomen Pelvis W Contrast - 08/29/2023 8:43 pm CLINICAL HISTORY: Abdominal pain COMPARISON: none. TECHNIQUE: Computed axial tomography of the abdomen pelvis was obtained. 100 cc Isovue-300 was admin istered intravenously. Oral contrast was not requested which limits evaluation of bowel and appendix All CT scans are performed using dose optimization technique as appropriate and may include automated exposure control or mA/KV adjustment according to patient size. FINDINGS: Marked scoliosis The liver, spleen, pancreas, adrenal and kidneys appear unremarkable. There is no evidence of diverticulitis. 3.6 centimeter right ovarian cyst. It is benign. No follow-up recommended. Tip of a FILM DEVELOPING MACHINE OPERATOR shunt right lower pelvis. Small amount of ascites. Spina bifida IMPRESSION: 3.6 centimeter right ovarian cyst. A small amount ascites may be related to the drainage from the FILM DEVELOPING MACHINE OPERATOR shunt.
[2023-08-29] MEDS ORDERED: POTASSIUM 25 MEQ EFFERV TAB ONE (21:24)
[2023-08-29 22:16] LABS: Specific Gravity > 1.030 (1.005-1.030); Urine Bilirubin NEGATIVE (Negative); Urine Blood Negative (Negative); Urine Clarity Clear (Clear); Urine Color Colorless (Yellow); Urine Glucose NEGATIVE (Negative); Urine Protein NEGATIVE (Negative); Urine Urobilinogen Normal (Normal)
--- NOTE | 2023-08-29 22:47 | EDPHYS ---
Physician Documentation [facility] Name: Niesha Subramanian Age: 28 yrs Sex: Female : 1995 Arrival Date: 08/29/2023 Time: 14:57 Bed 5 Private MD: ED Physician Juan Lehman HPI: 08/29 15:25 This 28 yrs old Female presents to ER via Wheelchair with complaints of Side cp Pain. 15:25 Patient is a 28-year-old female with past medical history significant for spina bifida cp and scoliosis who presents to the emergency department with complaints of left lateral lower rib pain. Patient states the pain is been gradually building and today it was worse. She denies any injury to the area. Denies any shortness of breath cough or abdominal pain. Historical: - Allergies: 15:31 Latex; bp - Home Meds: 15:31 None [Active]; bp - PMHx: 15:31 spina bifida; SCOLIOSIS; HYDROCEPHALUS; bp - Immunization history:: Adult Immunizations up to date. - Social history:: Smoking status: Patient denies any tobacco usage or history of. ROS: 15:30 Cardiovascular: Positive for chest pain, of the left lower lateral rib area, Negative cp for edema, palpitations, injury, 15:30 Eyes: Negative for injury, pain, redness, and discharge, cp 15:30 Constitutional: Negative for body aches, chills, fever, poor PO intake, 15:30 ENT: Negative for drainage from ear(s), ear pain, sore throat, difficulty swallowing, difficulty handling secretions, 15:30 Neck: Negative for pain with movement, pain at rest, stiffness, 15:30 Respiratory: Negative for cough, shortness of breath, wheezing, 15:30 Abdomen/GI: Negative for abdominal pain, nausea, vomiting, and diarrhea, 15:30 Back: Negative for injury or acute deformity, decreased range of motion, radiated pain, 15:30 : Positive for flank pain, Negative for urinary symptoms, 15:30 Skin: Negative for rash, 15:30 Neuro: Negative for altered mental status, dizziness, headache, weakness, 15:30 All other systems are negative, Exam: 15:35 Constitutional: The patient appears in no acute distress, alert, awake, non-toxic, well cp developed, well nourished, 15:35 Head/Face: Normocephalic, atraumatic. cp 15:35 Eyes: Periorbital structures: appear normal, Conjunctiva: normal, no exudate, no injection, Sclera: no appreciated abnormality, Lids and lashes: appear normal, bilaterally, 15:35 ENT: External ear(s): are unremarkable, Nose: is normal, Mouth: Lips: moist, Oral mucosa: pink and intact, moist, Posterior pharynx: is normal, airway is patent, no erythema, no exudate, 15:35 Neck: ROM/movement: is normal, is supple, without pain, no range of motions limitations, 15:35 Chest/axilla: Inspection: rash, is not appreciated, Palpation: crepitus, is not appreciated, tenderness, that is moderate, of the left lateral lower rib area, that partially reproduces the patient's complaints, 15:35 Cardiovascular: Rate: normal, Rhythm: regular, 15:35 Respiratory: the patient does not display signs of respiratory distress, Respirations: normal, no use of accessory muscles, no retractions, labored breathing, is not present, Breath sounds: are clear throughout, no decreased breath sounds, no stridor, no wheezing, 15:35 Abdomen/GI: Inspection: pin point suprapubic opening for urine output, Bowel sounds: active, all quadrants, Palpation: abdomen is soft and non-tender, in all quadrants, 15:35 Back: severe curvature noted, 15:35 Skin: cellulitis, is not appreciated, no rash present. Vital Signs: 15:30 BP 130 / 86; Pulse 77; Resp 16; Temp 98; Pulse Ox 99% ; Weight 68.95 kg; bp 21:49 BP 113 / 82; Pulse 87; Resp 15; Pulse Ox 99% ; vc1 MDM: 15:34 Patient medically screened. cp 22:45 Data reviewed: vital signs, nurses notes, lab test result(s), radiologic studies, CT cp scan, plain films. 22:45 Consideration of Admission/Observation Escalation of care including cp admission/observation considered. 08/29 15:18 Order name: CBC with Diff; Complete Time: 17:24 cp 08/29 17:25 Interpretation: Normal except: RBC 5.33; MCV 74.0; MCH 24.3; RDW 19.2. cp 08/29 15:18 Order name: CMP; Complete Time: 18:38 cp 08/29 21:01 Interpretation: Normal except: K 3.1; GLUC 128; CRE 0.54; AST 6; TP 8.3; GLOB 4.4; A/G cp 0.9. 08/29 15:18 Order name: Lipase; Complete Time: 18:38 cp 08/29 15:18 Order name: Urinalysis w/ reflexes; Complete Time: 22:28 cp 08/29 22:49 Interpretation: Normal except: Urine SG > 1.030; UPH 8.0. cp 08/29 15:18 Order name: XRAY Ribs LEFT; Complete Time: 17:24 cp 08/29 17:25 Interpretation: Report reviewed. 08/29 18:46 Order name: CT Abd/Pelvis - IV Contrast Only; Complete Time: 21:00 cp 08/29 15:18 Order name: IV Saline Lock; Complete Time: 16:41 cp 08/29 15:18 Order name: Labs collected and sent; Complete Time: 16:41 cp Administered Medications: 17:09 Drug: Ketorolac IVP 15 mg IVP once Route: IVP; Site: right antecubital; ph 21:27 Drug: Potassium PO Effervescent Tablet 50 mEq PO once; dissolve in 4 ounces of water or ha1 juice Route: PO; Disposition Summary: 08/29/23 22:46 Discharge Ordered Notes: Location: Home cp Problem: new cp Symptoms: have improved cp Condition: Stable cp Diagnosis - Chest pain, unspecified - left lower lateral cp - Other ovarian cysts cp - Hypokalemia cp Followup: cp - With: Private Physician - When: 2 - 3 days - Reason: Recheck today's complaints Discharge Instructions: - Discharge Summary Sheet cp - Chest Wall Pain cp - Potassium Content of Foods cp - Musculoskeletal Pain cp - Ovarian Cyst cp - Hypokalemia cp Forms: - Medication Reconciliation Form cp - Thank You Letter cp - Antibiotic Education cp - Prescription Opioid Use cp - Patient Portal Instructions cp - Leadership Thank You Letter cp Prescriptions: - Ibuprofen 800 mg Oral Tablet - take 1 tablet ORAL route every 8 hours As needed take with food; 30 tablet; cp Refills: 0, Product Selection Permitted - Cyclobenzaprine 10 mg Oral Tablet - take 1 tablet ORAL route every 8 hours As needed; 30 tablet; Refills: 0, cp Product Selection Permitted Signatures: Dispatcher [employer] EDAK Ursula aKhn RN RN ph Juan Simon PA PA cp Ulices Hodge RN RN bp Sarah Ott RN RN ha1 Corrections: (The following items were deleted from the chart) 22:12 15:18 Test, Urine+[id number].LAB.BRZ ordered. [facility] 08/30 22:07 22:05 Cardiovascular: Positive for chest pain, of the left lower lateral rib area, cp cp
--- NOTE | 2023-08-29 22:47 | ER ---
Nurse's Notes [facility] Name: Niesha Subramanian Age: 28 yrs Sex: Female : 1995 Arrival Date: 08/29/2023 Time: 14:57 Bed 5 Private MD: Diagnosis: Chest pain, unspecified-left lower lateral ;Other ovarian cysts;Hypokalemia Presentation: 08/29 15:30 Chief complaint: Patient states: "I HAVE PAIN IN MY RIBS CAUSE OF HOW I LEAN WITH MY bp SCOLIOSIS. ALSO I NEED TO CHECK MY EYES, MY DAD SAID THEY'RE EVELYN PALE.". Coronavirus screen: At this time, the client does not indicate any symptoms associated with coronavirus-19. Ebola Screen: No symptoms or risks identified at this time. Initial Sepsis Screen: Does the patient meet any 2 criteria? No. Patient's initial sepsis screen is negative. Does the patient have a suspected source of infection? No. Patient's initial sepsis screen is negative. Risk Assessment: Do you want to hurt yourself or someone else? Patient reports no desire to harm self or others. Onset of symptoms is unknown. 15:30 Method Of Arrival: Wheelchair bp 15:30 Acuity: RUBINA 3 bp Historical: - Allergies: 15:31 Latex; bp - Home Meds: 15:31 None [Active]; bp - PMHx: 15:31 spina bifida; SCOLIOSIS; HYDROCEPHALUS; bp - Immunization history:: Adult Immunizations up to date. - Social history:: Smoking status: Patient denies any tobacco usage or history of. Screenin:09 [facility] ED Fall Risk Assessment (Adult) History of falling in the last 3 months, ph including since admission No falls in past 3 months (0 pts) Confusion or Disorientation No (0 pts) Intoxicated or Sedated No (0 pts) Impaired Gait Yes (1 pt) Mobility Assist Device Used Yes (1 pt) Altered Elimination Yes (1 pt) Score/Fall Risk Level 3 or more points = High Risk Oriented to surroundings, Maintained a safe environment, Hourly rounding (assess needs \\T\\ fall precautionary measures) done, Used ambulatory aids as needed (educated on \\T\\ assisted with). Abuse screen: Denies threats or abuse. Denies injuries from another. Nutritional screening: No deficits noted. Tuberculosis screening: No symptoms or risk factors identified. Assessment: 17:10 General: Appears in no apparent distress. Behavior is calm, cooperative. Pain: ph Complains of pain in left lateral posterior chest, right lateral posterior chest, left lateral anterior chest and right lateral anterior chest. Neuro: Level of Consciousness is awake, alert, obeys commands, Oriented to person, place, time, situation. Cardiovascular: Capillary refill < 3 seconds in bilateral fingers Patient's skin is warm and dry. : suprapubic site w/ no catheter in place. Derm: Skin is pink, warm \\T\\ dry. 19:00 Reassessment: No changes from previously documented assessment. Patient and/or family vc1 updated on plan of care and expected duration. Pain level reassessed. Patient is alert, oriented x 3, equal unlabored respirations, skin warm/dry/pink. 20:00 Reassessment: No changes from previously documented assessment. Patient and/or family vc1 updated on plan of care and expected duration. Pain level reassessed. Patient is alert, oriented x 3, equal unlabored respirations, skin warm/dry/pink. 21:00 Reassessment: No changes from previously documented assessment. Patient and/or family vc1 updated on plan of care and expected duration. Pain level reassessed. Patient is alert, oriented x 3, equal unlabored respirations, skin warm/dry/pink. Vital Signs: 15:30 BP 130 / 86; Pulse 77; Resp 16; Temp 98; Pulse Ox 99% ; Weight 68.95 kg; bp 21:49 BP 113 / 82; Pulse 87; Resp 15; Pulse Ox 99% ; vc1 ED Course: 14:59 Patient arrived in ED. mg5 15:03 Juan Simon PA is PHCP. cp 15:03 Juan Lehman MD is Attending Physician. cp 15:31 Triage completed. bp 15:31 Arm band placed on. bp 15:52 XRAY Ribs LEFT In Process Unspecified. EDMS 16:18 Ursula Kahn, OJ is Primary Nurse. ph 16:42 Inserted saline lock: 20 gauge in right antecubital area, using aseptic technique. ls5 Blood collected. 17:10 Patient has correct armband on for positive identification. Bed in low position. Call ph light in reach. Side rails up X 1. Pulse ox on. NIBP on. Door closed. Noise minimized. Warm blanket given. 20:45 CT Abd/Pelvis - IV Contrast Only In Process Unspecified. EDMS 23:21 No provider procedures requiring assistance completed. IV discontinued, intact, vc1 bleeding controlled, No redness/swelling at site. Pressure dressing applied. Administered Medications: 17:09 Drug: Ketorolac IVP 15 mg IVP once Route: IVP; Site: right antecubital; ph 21:27 Drug: Potassium PO Effervescent Tablet 50 mEq PO once; dissolve in 4 ounces of water or ha1 juice Route: PO; Medication: 17:09 VIS not applicable for this client. ph Outcome: 22:46 Discharge ordered by MD. 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 medication usage, Demonstrated understanding of instructions, follow-up care, medications, Prescriptions given X 2, 23:21 Patient left the ED. vc1 Signatures: Dispatcher [employer] EDMS Ursula Kahn, RN RN ph Juan Simon, PA PA Ulices Demarco RN RN Patsy Soto RN RN vc1 Sarah Ott RN RN ha1 Praveen Thakkar 5 Barbara Arteaga 5
[2023-08-30 01:00] VITALS: TEMP 98; O2SAT 99
[2023-08-30 01:04] VITALS: BP 113/82
== END 2023-08-29 23:21 | disposition home or self-care (01) ==
LOC: ER 14:57
DX: R07.89 Other chest pain (principal); E87.6 Hypokalemia; N83.299 Other ovarian cyst, unspecified side
CPT/HCPCS: 85025; 36415; 81003; 83690; 80053; 74177; 71100; 96374; 99284; Q9967

== ENCOUNTER 2024-11-27 08:41 | Emergency (ER) | payer OTHER ==
[2024-11-27] MEDS ORDERED: NA CHLORIDE 0.9% 1,000 ML IV ONE (08:42)
[2024-11-27] MEDS ORDERED: EPINEPHrine 1 MG/10 ML SYR IV ONE (08:42)
--- NOTE | 2024-11-27 09:09 | EDPHYS ---
Physician Documentation [facility] Name: Niesha Subramanian Age: 29 yrs Sex: Female : 1995 Arrival Date: 11/27/2024 Time: 08:41 Bed 3 Private MD: ED Physician Henrik Palomo HPI: 11/27 09:45 This 29 yrs old Female presents to ER via Unassigned with complaints of CPR. 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 Patient reportedly vomited, potentially coffee-ground emesis by family, EMS was called, found patient to be in cardiac arrest, asystole. Reports 1 episode of ventricular tachycardia with 1 defibrillation, rhythm returned to asystole. Reports a downtime of 30 minutes prior to arrival. No further history could be obtained, symptoms are severe in severity. Historical: - Allergies: 09:55 Unable to obtain; ph - PMHx: 09:55 Hydrocephalus; scoliosis; spina bifida; ph - Family history:: not pertinent. ROS: 09:45 Unable to obtain ROS due to Cardiopulmonary arrest, rt Exam: 09:45 Constitutional: The patient appears Cool, pale, unresponsive rt 09:45 Head/face: Atraumatic. 09:45 Eyes: Pupils fixed, dilated. 09:45 ENT: Elias tube in place. 09:45 Neck: Trachea midline, 09:45 Chest/axilla: No deformity. 09:45 Cardiovascular: Pulseless, 09:45 Respiratory: Apneic, 09:45 Abdomen/GI: Mildly distended with multiple surgical scars, 09:45 Musculoskeletal/extremity: No deformity. 09:45 Skin: Cool, pale. 09:45 Neuro: GCS 3, 09:45 Psych: Not assessable. Procedures: 09:45 CPR: See CPR flow sheet. Initial patient assessment: unresponsive, The presenting rt cardiac rhythm is asystole. respirations assisted with BVM, Compressions: began prior to arrival. Meds given: Epinephrine despite ED evaluation and treatment, the patient . CPR was stopped at 09:05. Intubation: Intubated orally using For GlideScope with 7.5 mm ETT. was successful on first attempt. Ventilated with Ambu bag. Cricoid pressure applied during procedure. Tube secured with tape Placement verified by auscultating bilateral breath sounds. 09:54 Peripheral line:. Performed Intraosseous line placement. Unable to obtain immediate IV rt access and patient with cardiac arrest. I prepped the left tibia with alcohol, placed intraosseous line. There was good return of marrow, flushed easily.. MDM: 09:07 Medical Screening Exam initiated rt 09:45 Differential diagnosis: arrythmia, cardiac arrest. Data reviewed: vital signs, nurses rt notes. I considered the following discharge prescriptions or medication management in the emergency department Medications were administered in the Emergency Department. See MAR. Care significantly affected by the following chronic conditions: Spina bifida. ED course: Patient with more than 30 minutes of downtime prior to arrival, patient continues in asystole with early signs of severe anoxic brain injury. No change in the rhythm, no improvement. Further resuscitative efforts were deemed to be futile as there is no electrical activity and essentially 0 chance of meaningful neurologic recovery, CPR was stopped.. Administered Medications: 08:49 Drug: EPINEPHrine 0.1mg/mL 1:10,000 1 mg IVP once Route: IVP; Site: Other; ph 10:28 Follow up: Response: No adverse reaction; Cardiac rhythm is unchanged ph 08:50 Drug: Sodium Bicarbonate 1 amp IVP once; (50 mL); equals 50 mEq Route: IVP; Site: Other;ph 10:28 Follow up: Response: No adverse reaction; Cardiac rhythm is unchanged ph 08:52 Drug: EPINEPHrine 0.1mg/mL 1:10,000 1 mg IVP once Route: IVP; Site: Other; ph 10:28 Follow up: Response: No adverse reaction; Cardiac rhythm is unchanged ph 08:55 Drug: EPINEPHrine 0.1mg/mL 1:10,000 1 mg IVP once Route: IVP; Site: Other; ph 10:27 Follow up: Response: No adverse reaction; Cardiac rhythm is unchanged ph 08:58 Drug: EPINEPHrine 0.1mg/mL 1:10,000 1 mg IVP once Route: IVP; Site: Other; ph 10:27 Follow up: Response: No adverse reaction; Cardiac rhythm is unchanged ph 09:01 Drug: EPINEPHrine 0.1mg/mL 1:10,000 1 mg IVP once Route: IVP; Site: Other; ph 10:27 Follow up: Response: No adverse reaction; Cardiac rhythm is unchanged ph 09:04 Drug: EPINEPHrine 0.1mg/mL 1:10,000 1 mg IVP once Route: IVP; Site: Other; ph 10:27 Follow up: Response: No adverse reaction; Cardiac rhythm is unchanged ph Disposition: :45 Critical Care:. rt Disposition Summary: 11/27/24 09:08 Patient Notes: Location: [facility] rt Pronouncing Physician: Henrik Palomo rt Time of : 09:05 11/27/2024 rt Diagnosis - Cardiopulmonary arrest rt Critical care time excluding procedures: :45 Critical care time: Bedside Care: 30 minutes, Family Intervention: 5 minutes. Total rt time: 35 minutes Signatures: Ursula Kahn RN RN Henrik Palomo MD MD rt
--- NOTE | 2024-11-27 10:37 | ER ---
Nurse's Notes [facility] Name: Niesha Subramanian Age: 29 yrs Sex: Female : 1995 Arrival Date: 11/27/2024 Time: 08:41 Bed 3 Private MD: Diagnosis: Cardiopulmonary arrest Presentation: 11/27 08:40 Chief complaint: EMS states: EMS called for unresponsive pt, family stated to EMS that ph pt had taken pain medication then vomited and aspirated, CPR initiated by EMS, 1 shock administered for v-tach, Narcan given x 1, # 4 elias tube placed, pt asystole upon arrival. Care prior to arrival: #4 Elias tube CPR via thumper performed by EMS was defibrillated. Compressions began prior to arrival. 08:40 Method Of Arrival: EMS: [facility] ph 08:40 Acuity: RUBINA 1 ph Historical: - Allergies: 09:55 Unable to obtain; ph - PMHx: 09:55 Hydrocephalus; scoliosis; spina bifida; ph - Family history:: not pertinent. Assessment: 08:40 CPR assessment: unresponsive, pupils fixed \T\ dilated, no respiratory effort, Ambu ph ventilation. Cardiac rhythm is asystole. Neuro: Level of Consciousness is unresponsive. Cardiovascular: Rhythm is asystole. Respiratory: Airway is patent. GI: Abdomen is round non-distended. 08:48 Reassessment: Pulse check asystole. ph 08:51 Reassessment: Compressions paused for pulse check, asystole. ph 08:55 Reassessment: Compressions paused for pulse check, asystole. ph 08:57 Reassessment: Compressions paused for pulse check, asystole. ph 09:00 Reassessment: Compressions paused for pulse check, asystole. ph 09:03 Reassessment: Compressions paused for pulse check, asystole. ph 09:05 Reassessment: Compressions paused for pulse check, asystole, time of 0905. ph ED Course: 08:43 Patient arrived in ED. ty 08:45 Arm band placed on. ph 08:45 Inserted intraosseous access in left, using aseptic technique tibial tuberosity. ph 08:54 Assisted provider with intubation using 7.5 mm ETT via oral route. ET tube secured at ph 23cm at the lips. Set up intubation tray. Intubated by Henrik Palomo MD Placement verified by CO2 detector w/ + color change, auscultating bilateral breath sounds. 09:07 Henrik Palomo MD is Attending Physician. rt 09:07 Henrik Palomo MD is Pronouncing Provider. rt 09:08 Ursula Kahn RN is Primary Nurse. ph 09:08 [place] called to send Education Program Manager out regarding patients. ty 09:12 Education Program Manager Rape en route. ty 10:20 Triage completed. ph Administered Medications: 08:49 Drug: EPINEPHrine 0.1mg/mL 1:10,000 1 mg IVP once Route: IVP; Site: Other; ph 10:28 Follow up: Response: No adverse reaction; Cardiac rhythm is unchanged ph 08:50 Drug: Sodium Bicarbonate 1 amp IVP once; (50 mL); equals 50 mEq Route: IVP; Site: Other;ph 10:28 Follow up: Response: No adverse reaction; Cardiac rhythm is unchanged ph 08:52 Drug: EPINEPHrine 0.1mg/mL 1:10,000 1 mg IVP once Route: IVP; Site: Other; ph 10:28 Follow up: Response: No adverse reaction; Cardiac rhythm is unchanged ph 08:55 Drug: EPINEPHrine 0.1mg/mL 1:10,000 1 mg IVP once Route: IVP; Site: Other; ph 10:27 Follow up: Response: No adverse reaction; Cardiac rhythm is unchanged ph 08:58 Drug: EPINEPHrine 0.1mg/mL 1:10,000 1 mg IVP once Route: IVP; Site: Other; ph 10:27 Follow up: Response: No adverse reaction; Cardiac rhythm is unchanged ph 09:01 Drug: EPINEPHrine 0.1mg/mL 1:10,000 1 mg IVP once Route: IVP; Site: Other; ph 10:27 Follow up: Response: No adverse reaction; Cardiac rhythm is unchanged ph 09:04 Drug: EPINEPHrine 0.1mg/mL 1:10,000 1 mg IVP once Route: IVP; Site: Other; ph 10:27 Follow up: Response: No adverse reaction; Cardiac rhythm is unchanged ph Outcome: 09:05 Outcome Patient ph 10:20 Discharged to medical support specialist ph 10:20 Condition: 10:36 Patient left the ED. ph Signatures: Ursula Kahn RN RN ph Henrik Palomo MD MD rt Desmond Villaseñor
== END 2024-11-27 10:36 ==
LOC: ER 08:41
DX: I46.9 Cardiac arrest, cause unspecified (principal); Q05.4 Unspecified spina bifida with hydrocephalus
CPT/HCPCS: 31500; 36680; 96375; 96374; 92950 ×2; 99285; J0171; J7030